=== PATIENT | female | born 1985 | race Caucasian/White ===

== ENCOUNTER → 2022-08-07 | Emergency (ER) | payer BC ==
[~2022-08-07] VITALS: Ht 160 cm; Wt 90.7 kg
[~2022-08-07] MED LIST: EPIN0.3P3 IM; PRED50TA PO
--- NOTE | 2022-08-07 22:20 | NUR ---
Pt ius noted alert, responsive as she is brought in by C/O Allergic Reaction [id number] with Generalizer Rash and difficulty breathing" THROAT CLOSING UP". Pt care continue as awaist MD orders.
[2022-08-07 23:17] VITALS: BP 132/66
--- NOTE | 2022-08-07 23:19 | NUR ---
Pt is noted off the unit as she is feel better with no s/s off distress or difficulty breathing . She is been discharge to home with all discharge instruction given.
== END | disposition home or self-care (01) ==
LOC: ER 22:12
DX: T78.1XXA Other adverse food reactions, not elsewhere classified, initial encounter (principal); Z98.890 Other specified postprocedural states; Z79.899 Other long term (current) drug therapy; X58.XXXA Exposure to other specified factors, initial encounter